=== PATIENT | female | born 1965 ===

== ENCOUNTER 2020-03-28 12:30 | Inpatient (IN) | payer OTHER ==
[~2020-03-28] VITALS: Ht 165.1 cm; Wt 68.0 kg
== END 2020-04-06 16:35 | disposition home or self-care (01) | DRG 331 ==
LOC: O/R 04-03 06:25 → SURG 04-03 06:25 → SURH 04-03 12:30 → O/R 04-03 12:30 → SURH 04-03 14:30 → SURG 04-03 17:24
PROVIDERS: ADMIT Colon & Rectal Surgery; ATTEND Colon & Rectal Surgery
PROC: 0DTN4ZZ Resection of Sigmoid Colon, Percutaneous Endoscopic Approach (ICD-10-PCS; principal; 2020-04-03 14:30)
DX: K57.32 Diverticulitis of large intestine without perforation or abscess without bleeding (principal)